=== PATIENT | female | born 2000 | race Caucasian/White ===

== ENCOUNTER 2019-09-16 05:50 | Emergency (ER) | payer BC ==
[~2019-09-16] VITALS: Ht 167.6 cm; Wt 61.2 kg
[2019-09-16 05:55] VITALS: BP_SYST 103
--- NOTE | 2019-09-16 05:58 | NUR ---
Patient to ER bed 2 to gown for evaluation. Side rails up. Report given to Tammi LINDSEY.
--- NOTE | 2019-09-16 06:00 | NUR ---
Urine specimen collected from pt. Urine sent to lab.
--- NOTE | 2019-09-16 06:00 | NUR ---
Pt presents to ER with mother with c/o urinary problems. Pt A&Ox4. Pt states lower abdominal burning pain began a few days. Pt states increased frequency began with urine. Pt states nausea and chills. Pt states increased burning pain with urination. Pt states took ASO at 330 am for urinary pain. Will continue to monitor.
--- NOTE | 2019-09-16 06:10 | NUR ---
ER Dr. Carter at bedside examining patient.
[2019-09-16 06:15] VITALS: BP_SYST 103
--- NOTE | 2019-09-16 06:15 | NUR ---
Patient given written and verbal discharge instructions and verbalizes understanding. ER MD Carter discussed with patient the results and treatment provided. Patient in stable condition. ID arm band removed. Rx of macrobid and pyridium given. Patient educated on pain management and to follow up with PMD. Pain Scale 1/10. Opportunity for questions provided and answered. Medication side effect fact sheet provided.
[2019-09-16 06:32] LABS: CLARITY/URINE SLIGHTLY CLOUDY (CLEAR); COLOR,URINE ORANGE (YELLOW); GLUCOSE,URINE NEGATIVE (NEGATIVE); KETONES,URINE NEGATIVE (NEGATIVE); PROTEIN URINE 1+ (NEGATIVE)
[2019-09-16 06:33] LABS: BILIRUBIN,URINE 1+ (NEGATIVE); BLOOD, URINE 2+ (NEGATIVE); LEUKOCYTE ESTERASE ,URINE 3+ (NEGATIVE); NITRITE, URINE NEGATIVE (NEGATIVE); UROBILINOGEN,URINE 0.2 (0.2-1.0)
[2019-09-16 06:35] LABS: BACTERIA,URINE FEW /HPF (None Seen); WBC,URINE >100 /HPF (0-3)
== END 2019-09-16 06:15 | disposition home or self-care (01) ==
LOC: SED 05:50
DX: R10.30 Lower abdominal pain, unspecified (principal); R30.9 Painful micturition, unspecified; R11.0 Nausea
CPT/HCPCS: 81000-TC; 87086; 87186-TC; 99283

== ENCOUNTER 2020-05-15 16:29 | Emergency (ER) | payer BC ==
[~2020-05-15] VITALS: Ht 167.6 cm; Wt 61.7 kg
[2020-05-15 16:50] VITALS: BP_SYST 106
[2020-05-15 19:08] LABS: BASOPHILS # (AUTO) 0.1 K/uL (0.0-0.2); BASOPHILS % (AUTO) 0.6 % (0.0-2.0); EOSINOPHILS # (AUTO) 0.1 K/uL (0.0-0.4); EOSINOPHILS % (AUTO) 1.2 % (0.0-4.0); LYMPHOCYTES # (AUTO) 2.1 K/uL (1.0-5.5); LYMPHOCYTES % (AUTO) 24.2 % (20.5-51.5); MEAN CORPUSCULAR HEMOGLOBIN 29 pg (27-31); MEAN CORPUSCULAR HGB CONC 34 % (32-36); MEAN CORPUSCULAR VOLUME 85 fL (79.0-98.0); MONOCYTES # (AUTO) 0.6 K/uL (0.0-1.0); NEUTROPHILS # (AUTO) 5.8 K/uL (1.8-7.7); PLATELET COUNT (AUTO) 206 K/uL (130-430); RED BLOOD CELL COUNT(AUTO) 4.46 MIL/uL (4.2-6.2); RED CELL DISTRIBUTION WIDTH 13.3 % (9.0-15.0); WHITE BLOOD COUNT (AUTO) 8.6 K/uL (4.8-10.8)
[2020-05-15 19:11] LABS: CALCIUM 8.7 mg/dL (8.4-11.0); CREATININE 0.65 mg/dL (0.55-1.30); POTASSIUM 3.7 mmol/L (3.5-5.1)
[2020-05-15 19:22] LABS: ALBUMIN 3.9 g/dL (3.4-4.8); BILIRUBIN,DIRECT 0.1 mg/dL (0.0-0.3); TOTAL BILIRUBIN 0.2 mg/dL (0.0-1.0)
[2020-05-15 21:13] VITALS: BP_SYST 104
== END 2020-05-15 21:12 | disposition home or self-care (01) ==
LOC: SED 16:29
DX: N30.90 Cystitis, unspecified without hematuria (principal); R10.2 Pelvic and perineal pain; Z88.1 Allergy status to other antibiotic agents; Z88.2 Allergy status to sulfonamides
CPT/HCPCS: 36415; 76856-TC; 80048; 80076; 81002; 81025; 83690-TC; 84702-TC; 85025; 87210-TC; 87491; 87591; 99284

== ENCOUNTER 2020-05-25 01:28 | Emergency (ER) | payer BC ==
[~2020-05-25] VITALS: Ht 167.6 cm; Wt 61.7 kg
[2020-05-25 01:40] VITALS: BP_SYST 117
[2020-05-25] MEDS ORDERED: FAMOTIDINE 20 MG TABLET PO ONE (02:00)
[2020-05-25] MEDS ORDERED: DEXAMETHASONE SOD PHOSPHATE 10 MG/ML VIAL IM ONE (02:00)
[2020-05-25 02:53] VITALS: BP_SYST 116
== END 2020-05-25 02:52 | disposition home or self-care (01) ==
LOC: SED 01:28
DX: T78.40XA Allergy, unspecified, initial encounter (principal); F41.9 Anxiety disorder, unspecified; Z88.1 Allergy status to other antibiotic agents; Z88.2 Allergy status to sulfonamides; X58.XXXA Exposure to other specified factors, initial encounter
CPT/HCPCS: 96372; 99283; J1100

== ENCOUNTER 2024-05-07 19:06 | Emergency (ER) | payer BC ==
[~2024-05-07] VITALS: Ht 167.6 cm; Wt 67.1 kg
[2024-05-07 19:19] VITALS: BP_SYST 104; PULSE 82; RESP 16; TEMP 98.2; O2SAT 98
[2024-05-07 20:02] LABS: BILIRUBIN,URINE NEGATIVE (NEGATIVE); BLOOD, URINE 1+ (NEGATIVE); COLOR,URINE YELLOW (YELLOW); GLUCOSE,URINE NEGATIVE (NEGATIVE); KETONES,URINE NEGATIVE (NEGATIVE); LEUKOCYTE ESTERASE ,URINE NEGATIVE (NEGATIVE); NITRITE, URINE NEGATIVE (NEGATIVE); PROTEIN URINE NEGATIVE (NEGATIVE); UROBILINOGEN,URINE 0.2 (0.2-1.0)
[2024-05-07 20:13] LABS: CLARITY/URINE SLIGHTLY HAZY (CLEAR)
[2024-05-07 20:27] LABS: BASOPHILS # (AUTO) 0.1 K/uL (0.0-0.2); BASOPHILS % (AUTO) 0.9 % (0.0-2.0); EOSINOPHILS # (AUTO) 0.2 K/uL (0.0-0.4); EOSINOPHILS % (AUTO) 2.4 % (0.0-4.0); HEMATOCRIT 38.6 % (36-48); HEMOGLOBIN 13.5 g/dL (12.0-16.0); LYMPHOCYTES # (AUTO) 1.9 K/uL (1.0-5.5); LYMPHOCYTES % (AUTO) 24.7 % (20.5-51.5); MEAN CORPUSCULAR HEMOGLOBIN 30 pg (27-31); MEAN CORPUSCULAR HGB CONC 35 % (32-36); MEAN CORPUSCULAR VOLUME 86 fL (79.0-98.0); MONOCYTES # (AUTO) 0.6 K/uL (0.0-1.0); MONOCYTES % (AUTO) 7.9 % (1.7-9.3); NEUTROPHILS # (AUTO) 4.9 K/uL (1.8-7.7); NEUTROPHILS % (AUTO) 64.1 % (40.0-70.0); PLATELET COUNT (AUTO) 223 K/uL (130-430); RED BLOOD CELL COUNT(AUTO) 4.51 MIL/uL (4.2-6.2); RED CELL DISTRIBUTION WIDTH 13.3 % (9.0-15.0); WHITE BLOOD COUNT (AUTO) 7.6 K/uL (4.8-10.8)
[2024-05-07 20:35] LABS: CALCIUM 8.8 mg/dL (8.4-11.0); CREATININE 0.94 mg/dL (0.55-1.30); POTASSIUM 3.7 mmol/L (3.5-5.1)
[2024-05-07 20:36] LABS: BACTERIA,URINE None Seen /HPF (None Seen)
[2024-05-07] MEDS ORDERED: TRAM50TA2 PO (21:57)
[2024-05-08 00:16] VITALS: BP_SYST 104; PULSE 82; RESP 16; TEMP 98.2; O2SAT 98
== END 2024-05-07 23:10 | disposition home or self-care (01) ==
LOC: SED 19:06
DX: K59.00 Constipation, unspecified (principal); R10.2 Pelvic and perineal pain; Z88.2 Allergy status to sulfonamides; Z88.1 Allergy status to other antibiotic agents; Z79.899 Other long term (current) drug therapy
CPT/HCPCS: 36415; 74018; 76856; 80048; 81000; 81001; 81015; 81025; 85025; 99284